=== PATIENT | male | born 1940 | race Asian ===

== ENCOUNTER 2017-07-24 07:58 | Inpatient (IN) | payer MEDICARE, OTHER ==
[~2017-07-24] VITALS: Ht 170.2 cm; Wt 78.2 kg
[2017-07-24] MEDS ORDERED: ASPIRIN 81 MG CHEWABLE TABLET PO ONE (08:15)
[2017-07-24] MEDS ORDERED: NITROGLYCERIN 2% (1 GM=INCH) PACKET TP ONE ×2 (08:15)
[2017-07-24] MEDS ORDERED: NITROGLYCERIN 400 MCG/SUBLINGUAL SPRAY 4.9 GM BOTTLE SL ONE ×2 (08:30→09:15)
[2017-07-24 08:54] LABS: BASOPHILS % (AUTO) 0.4 % (0.0-2.0); EOSINOPHILS % (AUTO) 4.1 % (1.0-6.0); HEMATOCRIT 46.5 % (41-53); HEMOGLOBIN 15.7 g/dL (13.5-17.5); LYMPHOCYTES # (AUTO) 1.9 K/uL (1.0-4.8); LYMPHOCYTES % (AUTO) 26.1 % (22.0-44.0); MEAN CORPUSCULAR HEMOGLOBIN 29.8 pg (26.0-34.0); MEAN CORPUSCULAR HGB CONC 33.6 G/dL (31.0-37.0); MEAN CORPUSCULAR VOLUME 89 fL (80-100); MONOCYTES # (AUTO) 0.7 K/uL (0.1-1.0); MONOCYTES % (AUTO) 9.3 % (2.0-9.0); NEUTROPHILS # (AUTO) 4.3 K/uL (1.8-7.7); NEUTROPHILS % (AUTO) 60.1 % (40.0-70.0); PLATELET COUNT (AUTO) 181 K/uL (150-450); RED BLOOD CELL COUNT(AUTO) 5.25 MIL/uL (4.50-5.90); RED CELL DISTRIBUTION WIDTH 13.2 % (11.5-14.5)
[2017-07-24 09:07] LABS: ANION GAP 4 mmol/L (8-16); CALCIUM, TOTAL 9.1 mg/dL (8.8-10.5); CARBON DIOXIDE 31 mmol/L (22-29); CHLORIDE 103 mmol/L (98-107); CREATININE 1.39 mg/dL (0.60-1.30); GLOMERULAR FILTR. RATE CALC 50 mL/min (>60); GLUCOSE,RANDOM 123 mg/dL (70-110); SODIUM SERUM 138 mmol/L (136-145); UREA NITROGEN, BLOOD 18 mg/dL (7-18)
[2017-07-24 09:09] LABS: B-TYPE NATRIURETIC PEPTIDE 139 pg/mL (0-100)
[2017-07-24 09:14] LABS: ALANINE AMINOTRANSFERASE 18 U/L (12-78); ALBUMIN 3.8 g/dL (3.4-5.0); ALKALINE PHOSPHATASE 69 U/L (46-116); ASPARTATE AMINOTRANSFERASE 20 U/L (15-37); BILIRUBIN,TOTAL 0.5 mg/dL (0.1-1.0); CREATINE KINASE, TOTAL 68 U/L (39-308); TOTAL PROTEIN, SERUM 7.9 g/dL (6.4-8.2)
[2017-07-24] MEDS ORDERED: MORPHINE SULFATE 4 MG/ML SYRINGE IVP ONE (09:15)
[2017-07-24] MEDS ORDERED: ACETAMINOPHEN 325 MG TABLET PO PRN ×2 (09:45→11:45)
[2017-07-24] MEDS ORDERED: ONDANSETRON HCL 4 MG/2 ML VIAL IVP PRN ×2 (09:45→11:45)
[2017-07-24 10:52] VITALS: BP 165/92
[2017-07-24] MEDS ORDERED: MORPHINE SULFATE 4 MG/ML SYRINGE IVP PRN (11:45)
[2017-07-24] MEDS ORDERED: BISACODYL 10 MG RECTAL RECTAL SUPPOSITORY PR PRN (11:45)
[2017-07-24] MEDS ORDERED: MAGNESIUM HYDROXIDE SUSPENSION 30 ML UDCUP PO PRN (11:45)
[2017-07-24] MEDS ORDERED: PNEUMOCOCCAL VACCINE POLYVALENT 0.5 ML VIAL [PPSV23] IM ONE (12:45)
[2017-07-24] MEDS ORDERED: HEPARIN SODIUM 25000 UNITS/D5W 250 ML IV PRN (13:19)
[2017-07-24] MEDS ORDERED: HEPARIN SODIUM,PORCINE 5,000 UNITS/ML VIAL IVP ONE (13:30)
[2017-07-24] MEDS ORDERED: HEPARIN SODIUM,PORCINE 5,000 UNITS/ML VIAL IVP PRN ×2 (13:30)
[2017-07-24 14:50] VITALS: BP 144/82
[2017-07-24 14:54] LABS: PROTHROMBIN TIME 10.2 SEC (9.4-11.6)
[2017-07-24] MEDS: METOPROLOL TARTRATE 25 MG TABLET PO SCH ×3 (14:54→23:42)
[2017-07-24 15:56] VITALS: BP 131/72
[2017-07-24] MEDS ORDERED: HEPARIN SODIUM,PORCINE 5,000 UNITS/ML VIAL SQ SCH (16:00)
[2017-07-24] MEDS ORDERED: SODIUM CHLORIDE 0.9% 100 ML ONE (16:08)
[2017-07-24] MEDS ORDERED: IOVERSOL 350 MG/ML 150 ML VIAL ONE (16:09)
[2017-07-24] MEDS: NITROGLYCERIN 2% (1 GM=INCH) PACKET TP SCH ×2 (16:26→23:42)
[2017-07-24 19:30] VITALS: BP 154/94
[2017-07-24] MEDS: CARVEDILOL 3.125 MG TABLET PO SCH (20:26)
[2017-07-24] MEDS: ATORVASTATIN CALCIUM 40 MG TABLET PO SCH (20:26)
[2017-07-24] MEDS: SODIUM CHLORIDE 0.9% 1,000 ML IV SCH (20:26)
[2017-07-24] MEDS: DOCUSATE SODIUM 100 MG CAPSULE PO SCH (20:26)
[2017-07-24 23:48] VITALS: BP 154/89
[2017-07-25] VITALS (23 sets, daily range): BP systolic 106–160; BP diastolic 48–92
[2017-07-25] MEDS: METOPROLOL TARTRATE 25 MG TABLET PO SCH ×2 (06:00→12:00)
[2017-07-25 06:09] LABS: BASOPHILS % (AUTO) 0.4 % (0.0-2.0); EOSINOPHILS % (AUTO) 4.2 % (1.0-6.0); HEMATOCRIT 43.9 % (41-53); HEMOGLOBIN 15.3 g/dL (13.5-17.5); LYMPHOCYTES % (AUTO) 25.4 % (22.0-44.0); MEAN CORPUSCULAR HEMOGLOBIN 30.9 pg (26.0-34.0); MEAN CORPUSCULAR HGB CONC 34.9 G/dL (31.0-37.0); MEAN CORPUSCULAR VOLUME 89 fL (80-100); MONOCYTES # (AUTO) 0.9 K/uL (0.1-1.0); MONOCYTES % (AUTO) 11.9 % (2.0-9.0); NEUTROPHILS # (AUTO) 4.5 K/uL (1.8-7.7); NEUTROPHILS % (AUTO) 58.1 % (40.0-70.0); PLATELET COUNT (AUTO) 176 K/uL (150-450); RED BLOOD CELL COUNT(AUTO) 4.96 MIL/uL (4.50-5.90); RED CELL DISTRIBUTION WIDTH 13.1 % (11.5-14.5)
[2017-07-25 06:29] LABS: ANION GAP 7 mmol/L (8-16); CALCIUM, TOTAL 8.8 mg/dL (8.8-10.5); CARBON DIOXIDE 28 mmol/L (22-29); CHLORIDE 104 mmol/L (98-107); CHOL/HDL RATIO 4.7 (4.2-7.3); CHOLESTEROL 189 mg/dL (131-200); CREATININE 1.13 mg/dL (0.60-1.30); GLOMERULAR FILTR. RATE CALC > 60 mL/min (>60); GLUCOSE,RANDOM 112 mg/dL (70-110); HDL CHOLESTEROL 40 mg/dL (40-60); LDL CHOL (CALC.) 133 mg/dL (0-130); POTASSIUM 4.1 mmol/L (3.5-5.1); SODIUM SERUM 139 mmol/L (136-145); TRIGLYCERIDES 82 mg/dL (15-150); UREA NITROGEN, BLOOD 18 mg/dL (7-18)
[2017-07-25] MEDS: NITROGLYCERIN 2% (1 GM=INCH) PACKET TP SCH ×2 (08:11→16:48)
[2017-07-25] MEDS: SODIUM CHLORIDE 0.9% 1,000 ML IV SCH ×2 (08:11→16:00)
[2017-07-25] MEDS: CARVEDILOL 3.125 MG TABLET PO SCH ×2 (08:11→21:04)
[2017-07-25] MEDS: DOCUSATE SODIUM 100 MG CAPSULE PO SCH ×2 (08:16→21:04)
[2017-07-25] MEDS: PANTOPRAZOLE SODIUM 40 MG DR TABLET PO SCH (08:16)
[2017-07-25] MEDS ORDERED: LIDOCAINE HCL/PF 1% 30 ML VIAL ONE (08:21)
[2017-07-25] MEDS ORDERED: IOHEXOL 300 MG/ML 150 ML VIAL ONE (08:21)
[2017-07-25] MEDS ORDERED: SODIUM BICARBONATE 50 MEQ/50 ML VIAL ONE (08:21)
[2017-07-25] MEDS ORDERED: HEPARIN SODIUM 1000 UNITS/NS 1,000 ML ONE (08:22)
[2017-07-25] MEDS ORDERED: ASPIRIN 81 MG CHEWABLE TABLET PO SCH (09:00)
[2017-07-25] MEDS ORDERED: ASPIRIN 325 MG TABLET PO SCH (09:00)
[2017-07-25] MEDS ORDERED: IOHEXOL 300 MG/ML 100 ML VIAL ONE ×2 (09:25→10:09)
[2017-07-25] MEDS ORDERED: FentaNYL CITRATE-PF 100 MCG/2 ML VIAL ONE (09:26)
[2017-07-25] MEDS ORDERED: MIDAZOLAM HCL 2 MG/2 ML VIAL ONE (09:26)
[2017-07-25] MEDS ORDERED: SODIUM CHLORIDE 0.9% 500 ML IV ONE (09:31)
[2017-07-25] MEDS ORDERED: HEPARIN SODIUM 1000 UNITS/NS 1,000 ML IARTER ONE (09:31)
[2017-07-25] MEDS ORDERED: IOHEXOL 300 MG/ML 150 ML VIAL IARTER ONE (09:45)
[2017-07-25] MEDS ORDERED: LIDOCAINE 1% 30 ML/SOD BICARB 8.4% 4 ML SQ ONE (09:45)
[2017-07-25] MEDS ORDERED: MIDAZOLAM HCL 2 MG/2 ML VIAL IVP ONE ×2 (09:45→10:15)
[2017-07-25] MEDS ORDERED: FentaNYL CITRATE-PF 100 MCG/2 ML VIAL IVP ONE ×4 (09:45→13:15)
[2017-07-25] MEDS ORDERED: ASPIRIN 325 MG TABLET ONE (10:02)
[2017-07-25] MEDS ORDERED: TICAGRELOR 90 MG TABLET ONE (10:02)
[2017-07-25] MEDS ORDERED: EPTIFIBATIDE 2 MG/ML 10 ML VIAL IVP ONE ×3 (10:06→10:30)
[2017-07-25] MEDS ORDERED: ASPIRIN 325 MG TABLET PO ONE (10:15)
[2017-07-25] MEDS ORDERED: HEPARIN SODIUM,PORCINE 5,000 UNITS/ML VIAL IVP ONE (10:15)
[2017-07-25] MEDS ORDERED: TICAGRELOR 90 MG TABLET PO ONE (10:15)
[2017-07-25] MEDS: ATORVASTATIN CALCIUM 40 MG TABLET PO SCH (21:04)
[2017-07-25] MEDS: TICAGRELOR 90 MG TABLET PO SCH (21:04)
[2017-07-25] MEDS: ZOLPIDEM TARTRATE 5 MG TABLET PO PRN (21:05)
[2017-07-26] VITALS: BP 155/109
[2017-07-26] MEDS: METOPROLOL TARTRATE 25 MG TABLET PO SCH ×2 (00:57→14:06)
[2017-07-26] MEDS: NITROGLYCERIN 2% (1 GM=INCH) PACKET TP SCH ×3 (00:57→16:22)
[2017-07-26] MEDS: HYDROCODONE/ACETAMINOPHEN 5-325 MG TABLET PO PRN ×2 (01:50→20:52)
[2017-07-26 04:00] VITALS: BP 96/42
[2017-07-26 08:00] VITALS: BP 138/81
[2017-07-26] MEDS: PANTOPRAZOLE SODIUM 40 MG DR TABLET PO SCH (09:18)
[2017-07-26] MEDS: DOCUSATE SODIUM 100 MG CAPSULE PO SCH ×2 (09:18→20:52)
[2017-07-26] MEDS: ASPIRIN 81 MG CHEWABLE TABLET PO SCH (09:18)
[2017-07-26] MEDS: TICAGRELOR 90 MG TABLET PO SCH ×2 (09:18→20:51)
[2017-07-26] MEDS: CARVEDILOL 3.125 MG TABLET PO SCH ×2 (09:18→20:15)
[2017-07-26 09:31] LABS: BASOPHILS % (AUTO) 0.4 % (0.0-2.0); EOSINOPHILS % (AUTO) 3.5 % (1.0-6.0); HEMATOCRIT 45.5 % (41-53); HEMOGLOBIN 15.2 g/dL (13.5-17.5); LYMPHOCYTES # (AUTO) 1.2 K/uL (1.0-4.8); LYMPHOCYTES % (AUTO) 17.7 % (22.0-44.0); MEAN CORPUSCULAR HEMOGLOBIN 29.8 pg (26.0-34.0); MEAN CORPUSCULAR HGB CONC 33.3 G/dL (31.0-37.0); MEAN CORPUSCULAR VOLUME 89 fL (80-100); MONOCYTES # (AUTO) 0.8 K/uL (0.1-1.0); MONOCYTES % (AUTO) 11.5 % (2.0-9.0); NEUTROPHILS # (AUTO) 4.7 K/uL (1.8-7.7); NEUTROPHILS % (AUTO) 66.9 % (40.0-70.0); PLATELET COUNT (AUTO) 191 K/uL (150-450); RED BLOOD CELL COUNT(AUTO) 5.09 MIL/uL (4.50-5.90); RED CELL DISTRIBUTION WIDTH 13.5 % (11.5-14.5)
[2017-07-26 09:40] LABS: CALCIUM, TOTAL 9.2 mg/dL (8.8-10.5); CREATININE 1.21 mg/dL (0.60-1.30); POTASSIUM 3.9 mmol/L (3.5-5.1)
[2017-07-26 12:00] VITALS: BP 140/54
[2017-07-26 15:36] VITALS: BP 132/73
[2017-07-26 20:01] VITALS: BP 133/77
[2017-07-26] MEDS: ATORVASTATIN CALCIUM 40 MG TABLET PO SCH (20:52)
[2017-07-27] VITALS (7 sets, daily range): BP systolic 106–153; BP diastolic 67–80
[2017-07-27] MEDS: NITROGLYCERIN 2% (1 GM=INCH) PACKET TP SCH ×3 (00:05→16:22)
[2017-07-27] MEDS: METOPROLOL TARTRATE 25 MG TABLET PO SCH (00:49)
[2017-07-27] MEDS: ZOLPIDEM TARTRATE 5 MG TABLET PO PRN (00:49)
[2017-07-27] MEDS: PANTOPRAZOLE SODIUM 40 MG DR TABLET PO SCH (08:24)
[2017-07-27] MEDS: TICAGRELOR 90 MG TABLET PO SCH ×2 (08:24→21:20)
[2017-07-27] MEDS: ASPIRIN 81 MG CHEWABLE TABLET PO SCH (08:24)
[2017-07-27] MEDS: DOCUSATE SODIUM 100 MG CAPSULE PO SCH ×2 (08:25→21:20)
[2017-07-27] MEDS: CARVEDILOL 3.125 MG TABLET PO SCH ×2 (08:25→21:20)
[2017-07-27 09:37] LABS: BASOPHILS % (AUTO) 0.2 % (0.0-2.0); EOSINOPHILS % (AUTO) 4.3 % (1.0-6.0); HEMATOCRIT 47.9 % (41-53); LYMPHOCYTES # (AUTO) 1.1 K/uL (1.0-4.8); LYMPHOCYTES % (AUTO) 12.2 % (22.0-44.0); MEAN CORPUSCULAR HEMOGLOBIN 29.9 pg (26.0-34.0); MEAN CORPUSCULAR HGB CONC 33.4 G/dL (31.0-37.0); MEAN CORPUSCULAR VOLUME 90 fL (80-100); MONOCYTES % (AUTO) 11.3 % (2.0-9.0); NEUTROPHILS # (AUTO) 6.2 K/uL (1.8-7.7); PLATELET COUNT (AUTO) 189 K/uL (150-450); RED BLOOD CELL COUNT(AUTO) 5.34 MIL/uL (4.50-5.90); RED CELL DISTRIBUTION WIDTH 13.2 % (11.5-14.5)
[2017-07-27 09:57] LABS: CALCIUM, TOTAL 9.4 mg/dL (8.8-10.5); CREATININE 1.29 mg/dL (0.60-1.30); POTASSIUM 4.2 mmol/L (3.5-5.1)
[2017-07-27] MEDS: ATORVASTATIN CALCIUM 40 MG TABLET PO SCH (21:20)
[2017-07-28 00:09] VITALS: BP 142/70
[2017-07-28] MEDS: NITROGLYCERIN 2% (1 GM=INCH) PACKET TP SCH ×2 (00:12→08:25)
[2017-07-28] MEDS: ZOLPIDEM TARTRATE 5 MG TABLET PO PRN (00:12)
[2017-07-28 05:12] VITALS: BP 132/68
[2017-07-28 07:37] VITALS: BP 123/63
[2017-07-28 07:45] VITALS: BP 131/72
[2017-07-28] MEDS: PANTOPRAZOLE SODIUM 40 MG DR TABLET PO SCH (08:25)
[2017-07-28] MEDS: CARVEDILOL 3.125 MG TABLET PO SCH (08:26)
[2017-07-28] MEDS: DOCUSATE SODIUM 100 MG CAPSULE PO SCH (08:26)
[2017-07-28] MEDS: TICAGRELOR 90 MG TABLET PO SCH (08:26)
[2017-07-28] MEDS: ASPIRIN 81 MG CHEWABLE TABLET PO SCH (08:26)
[2017-07-28 11:11] VITALS: BP 126/70
[2017-07-28] MEDS ORDERED: ASPI-1182 PO (12:51)
[2017-07-28] MEDS ORDERED: CARV3 PO (12:52)
[2017-07-28] MEDS ORDERED: ATOR40TA28 PO (12:52)
[2017-07-28] MEDS ORDERED: TICA90TA PO (12:53)
== END 2017-07-28 13:15 | disposition home or self-care (01) | DRG 246 ==
LOC: EMS 07:59 → 5N 09:58 → 5S 16:43 → ICU 07-25 11:13 → 5S 07-26 15:25
PROVIDERS: ADMIT Internal Medicine; ATTEND Internal Medicine
PROC: 027034Z Dilation of Coronary Artery, One Artery with Drug-eluting Intraluminal Device, Percutaneous Approach (ICD-10-PCS; principal; 2017-07-25)
PROC: 4A023N7 Measurement of Cardiac Sampling and Pressure, Left Heart, Percutaneous Approach (ICD-10-PCS; 2017-07-25)
PROC: B2111ZZ Fluoroscopy of Multiple Coronary Arteries using Low Osmolar Contrast (ICD-10-PCS; 2017-07-25)
PROC: B2181ZZ Fluoroscopy of Left Internal Mammary Bypass Graft using Low Osmolar Contrast (ICD-10-PCS; 2017-07-25)
PROC: B2151ZZ Fluoroscopy of Left Heart using Low Osmolar Contrast (ICD-10-PCS; 2017-07-25)
PROC: B2131ZZ Fluoroscopy of Multiple Coronary Artery Bypass Grafts using Low Osmolar Contrast (ICD-10-PCS; 2017-07-25)
PROC: B41F1ZZ Fluoroscopy of Right Lower Extremity Arteries using Low Osmolar Contrast (ICD-10-PCS; 2017-07-25)
DX: T82.858A Stenosis of other vascular prosthetic devices, implants and grafts, initial encounter (principal); I21.4 Non-ST elevation (NSTEMI) myocardial infarction; I50.33 Acute on chronic diastolic (congestive) heart failure; I13.0 Hypertensive heart and chronic kidney disease with heart failure and stage 1 through stage 4 chronic kidney disease, or unspecified chronic kidney disease; N18.3 Chronic kidney disease, stage 3 (moderate); E78.5 Hyperlipidemia, unspecified; I25.10 Atherosclerotic heart disease of native coronary artery without angina pectoris; Y83.2 Surgical operation with anastomosis, bypass or graft as the cause of abnormal reaction of the patient, or of later complication, without mention of misadventure at the time of the procedure; F17.210 Nicotine dependence, cigarettes, uncomplicated; Z95.1 Presence of aortocoronary bypass graft; Z91.14 Patient's other noncompliance with medication regimen; Y92.9 Unspecified place or not applicable
CPT/HCPCS: 71260; 72193; 74160; 87081; 92920; 92928; 93005; 93306; 93459; 93970; 99285; J1327; J1644; J2250; J2270; J3010; J3490; J7030; J7040; J7050; Q9967